=== PATIENT | male | born 2000 | race Caucasian/White ===

== ENCOUNTER 2019-05-03 12:50 | Emergency (ER) | payer MEDICAID, OTHER ==
[~2019-05-03] VITALS: Ht 172.7 cm; Wt 68.2 kg
[~2019-05-03 12:50] MED LIST: NOCURR
[2019-05-03] MEDS ORDERED: BACITRACIN 0.9 GM PACKET OINTMENT TP ONE (13:45)
[2019-05-03] MEDS ORDERED: LIDOCAINE/PF 1% 5 ML VIAL INJ ONE (13:45)
[2019-05-03 14:20] VITALS: BP 130/84
== END 2019-05-03 14:40 | disposition home or self-care (01) ==
LOC: EMS 12:50
DX: S61.213A Laceration without foreign body of left middle finger without damage to nail, initial encounter (principal); F12.90 Cannabis use, unspecified, uncomplicated; W25.XXXA Contact with sharp glass, initial encounter; Y93.89 Activity, other specified; Y92.89 Other specified places as the place of occurrence of the external cause; Y99.8 Other external cause status
CPT/HCPCS: 12002; 73130; 99283; J2001